=== PATIENT | male | born 1940 | race Caucasian/White ===

== ENCOUNTER → 2018-01-14 | Outpatient (CLI) | payer MEDICARE, OTHER ==
[~2018-01-14] MED LIST: GABA-827 PO; HYDR-3245 PO; TIZA4TAB PO
[2018-01-14 12:24] LABS: BASOPHILS # (AUTO) 0.04 x10^3/uL (0-0.1); BASOPHILS % (AUTO) 1 % (0-1); EOSINOPHILS # (AUTO) 0.14 x10^3/uL (0-0.4); EOSINOPHILS % (AUTO) 2 % (1-7); LYMPHOCYTES # (AUTO) 2.51 x10^3/uL (1-3.4); LYMPHOCYTES % (AUTO) 34 % (22-44); MD NO; MEAN CORPUSCULAR HEMOGLOBIN 30.6 pg (27.5-34.5); MEAN CORPUSCULAR HGB CONC 33.4 g/dL (33.2-36.2); MEAN CORPUSCULAR VOLUME 91.7 fL (81-97); MEAN PLATELET VOLUME 7.6 fL (7.4-10.4); MONOCYTES % (AUTO) 10 % (2-9); NEUTROPHILS # (AUTO) 3.98 x10^3/uL (1.8-6.8); NEUTROPHILS % (AUTO) 54 % (42-75); PLATELET COUNT 327 x10^3/uL (130-400); RED BLOOD COUNT 4.74 x10^6/uL (4.38-5.82); RED CELL DISTRIBUTION WIDTH 13.6 % (9.4-14.8)
[2018-01-14 12:25] LABS: MICROSCOPIC NOT IND
[2018-01-14 12:33] LABS: ANION GAP 5 mmol/L (5-15); CALCIUM 9.2 mg/dL (8.5-10.1); CHLORIDE 105 mmol/L (98-107); CREATININE 0.97 mg/dL (0.7-1.3)
[2018-01-14 12:35] LABS: CULTURE INDICATED? NO
== END | disposition home or self-care (01) ==
LOC: STAR 11:18
PROVIDERS: ATTEND Orthopaedic Surgery
DX: Z01.818 Encounter for other preprocedural examination (principal); M17.11 Unilateral primary osteoarthritis, right knee
CPT/HCPCS: 36415; 80048; 81003; 85025; 87081; 93005

== ENCOUNTER 2018-01-20 08:02 | Inpatient (IN) | payer MEDICARE, OTHER ==
[~2018-01-20] VITALS: Ht 170.2 cm; Wt 89.2 kg
[2018-01-20] MEDS ORDERED: FENTANYL PF 250 MCG/5ML ONE (08:21)
[2018-01-20] MEDS ORDERED: SODIUM CHLORIDE 0.9% 100 ML ONE (09:09)
[2018-01-20] MEDS ORDERED: KETOROLAC 60 MG/2 ML ONE (09:09)
[2018-01-20] MEDS ORDERED: TRANEXAMIC ACID 100 MG/ML, 10ML ONE (09:09)
[2018-01-20] MEDS ORDERED: EPINEPHRINE 1 MG/ML, 1ML ONE (09:09)
[2018-01-20] MEDS ORDERED: ROPIvacaine/PF 0.2%, 20 ML ONE (09:09)
[2018-01-20] MEDS ORDERED: HYDROmorphone 1 MG/ML, 1ML IV PRN ×2 (09:30→11:30)
[2018-01-20] MEDS ORDERED: hydrALAzine 20 MG/ML, 1ML IV PRN (09:30)
[2018-01-20] MEDS ORDERED: PROMETHAZINE 12.5 MG SUPP PR PRN ×2 (09:30→11:30)
[2018-01-20] MEDS ORDERED: ALBUTEROL SULFATE 2.5 MG/3 ML NPPB PRN (09:30)
[2018-01-20] MEDS ORDERED: OXYcodone 5 MG/5 ML ORAL.SOL UDC PO PRN (09:30)
[2018-01-20] MEDS ORDERED: LABETALOL 5MG/ML, 20ML IV PRN (09:30)
[2018-01-20] MEDS ORDERED: PROMETHAZINE 25 MG/ML, 1ML IV PRN (09:30)
[2018-01-20] MEDS ORDERED: CEFAZOLIN 1,000 MG ONE (09:34)
[2018-01-20] MEDS ORDERED: PROPOFOL 10 MG/ML, 20ML ONE (09:34)
[2018-01-20] MEDS ORDERED: ONDANSETRON 2MG/ML, 2ML ONE (09:34)
[2018-01-20] MEDS ORDERED: LIDOCAINE-MPF 2% ,5ML ONE (09:34)
[2018-01-20] MEDS ORDERED: DEXAMETHASONE 4 MG/ML, 1ML ONE (09:34)
[2018-01-20] MEDS: FENTANYL PF 100 MCG/2ML IV PRN ×3 (11:20→12:00)
[2018-01-20] MEDS ORDERED: FENTANYL PF 100 MCG/2ML ONE ×2 (11:21→11:56)
[2018-01-20] MEDS ORDERED: MEPERIDINE/PF 50 MG/ML ONE (11:21)
[2018-01-20] MEDS ORDERED: OXYcodone 5 MG/5 ML ORAL.SOL UDC ONE (11:22)
[2018-01-20] MEDS: D5%-0.45% NACL 1,000 ML IV SCH ×2 (11:23→23:29)
[2018-01-20] MEDS ORDERED: DIAZEPAM 5 MG TABLET PO PRN (11:30)
[2018-01-20] MEDS ORDERED: ONDANSETRON 2MG/ML, 2ML IV PRN (11:30)
[2018-01-20] MEDS ORDERED: ONDANSETRON 4 MG TABLET PO PRN (11:30)
[2018-01-20] MEDS ORDERED: MEPERIDINE/PF 25MG/0.5ML IVPush PRN (11:30)
[2018-01-20] MEDS ORDERED: ALUMINUM/MAG/SIMETHICONE 30 ML UDC PO PRN (11:30)
[2018-01-20] MEDS ORDERED: MAGNESIUM HYDROXIDE 8%, 30ML UDC PO PRN (11:30)
[2018-01-20] MEDS ORDERED: LORazepam 1MG TABLET PO PRN (11:30)
[2018-01-20] MEDS ORDERED: SENNA/DOCUSATE TABLET PO PRN (11:30)
[2018-01-20] MEDS ORDERED: BISACODYL 10 MG SUPP PR PRN (11:30)
[2018-01-20] MEDS ORDERED: DIPHENHYDRAMINE 25 MG CAPSULE PO PRN (11:30)
[2018-01-20] MEDS ORDERED: PROMETHAZINE 25 MG/ML, 1ML IM PRN (11:30)
[2018-01-20] MEDS ORDERED: TRANEXAMIC ACID 1,000 MG in SODIUM CHLORIDE 0.9% 100 ML IVPB ONE (12:00)
[2018-01-20] MEDS: OXYcodone IR 5MG TABLET PO PRN ×3 (13:39→23:30)
[2018-01-20] MEDS ORDERED: KETOROLAC 30 MG/1 ML ONE (14:03)
[2018-01-20] MEDS: ACETAMINOPHEN 500 MG TABLET PO SCH ×2 (14:15→23:30)
[2018-01-20] MEDS: TAMSULOSIN 0.4 MG CAP.ER.24H PO SCH (14:48)
[2018-01-20] MEDS: GABAPENTIN 400 MG CAPSULE PO SCH ×2 (16:50→20:31)
[2018-01-20] MEDS: TIZANIDINE 4MG TABLET PO SCH ×2 (16:50→20:31)
[2018-01-20] MEDS: CEFAZOLIN PMX 2GM/50ML 50 ML IVPB SCH (18:08)
[2018-01-20 19:07] VITALS: BP 151/82
[2018-01-20] MEDS: DOCUSATE 100 MG CAPSULE PO SCH (20:31)
[2018-01-20 23:30] VITALS: BP 117/72
[2018-01-21] MEDS: CEFAZOLIN PMX 2GM/50ML 50 ML IVPB SCH (01:25)
[2018-01-21 02:45] VITALS: BP 116/57
[2018-01-21] MEDS: OXYcodone IR 5MG TABLET PO PRN ×2 (05:44→11:42)
[2018-01-21] MEDS: ACETAMINOPHEN 500 MG TABLET PO SCH (05:44)
[2018-01-21] MEDS ORDERED: DEXAMETHASONE 4 MG/ML, 1ML IVPush SCH (06:00)
[2018-01-21] MEDS ORDERED: ASPIRIN 81 MG TABLET EC PO SCH (06:00)
[2018-01-21 07:09] VITALS: BP 125/61
[2018-01-21] MEDS: TAMSULOSIN 0.4 MG CAP.ER.24H PO SCH (08:06)
[2018-01-21] MEDS: TIZANIDINE 4MG TABLET PO SCH (08:06)
[2018-01-21] MEDS: DOCUSATE 100 MG CAPSULE PO SCH (08:07)
[2018-01-21] MEDS: GABAPENTIN 400 MG CAPSULE PO SCH (08:07)
[2018-01-21] MEDS: D5%-0.45% NACL 1,000 ML IV SCH (08:27)
[2018-01-21] MEDS ORDERED: KETOROLAC 30 MG/1 ML IV SCH (11:30)
[2018-01-21] MEDS ORDERED: OXYC5CAP2 PO (13:24)
== END 2018-01-21 13:33 | disposition home or self-care (01) | DRG 470 ==
LOC: OUT 08:02 → ORIP 11:23 → 4NOR 12:45 → DCLOUNGE 01-21 13:22
PROVIDERS: ADMIT Orthopaedic Surgery; ATTEND Orthopaedic Surgery
PROC: 0SRC0J9 Replacement of Right Knee Joint with Synthetic Substitute, Cemented, Open Approach (ICD-10-PCS; principal; 2018-01-20 12:00)
DX: M17.0 Bilateral primary osteoarthritis of knee (principal); F17.210 Nicotine dependence, cigarettes, uncomplicated; G89.29 Other chronic pain; M11.20 Other chondrocalcinosis, unspecified site; M54.5 Low back pain; Z91.048 Other nonmedicinal substance allergy status; Z79.899 Other long term (current) drug therapy; Z79.1 Long term (current) use of non-steroidal anti-inflammatories (NSAID)
CPT/HCPCS: 36415; 85018; C1713; J0171; J0690; J1100; J1885; J2175; J2405; J2704; J2795; J3010; J3490; C1776